=== PATIENT | male | born 2000 | race Hispanic/Latino ===

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

== ENCOUNTER 2023-07-29 00:52 | Emergency (ER) | payer BC, MEDICAID ==
[~2023-07-29] VITALS: Ht 188 cm; Wt 64.9 kg
[2023-07-29 01:23] VITALS: BP 117/68; PULSE 80; RESP 18; O2SAT 98
== END 2023-07-29 04:00 | disposition home or self-care (01) ==
LOC: EDH 00:52
DX: S83.91XA Sprain of unspecified site of right knee, initial encounter (principal); W18.39XA Other fall on same level, initial encounter; Y93.89 Activity, other specified; Y92.89 Other specified places as the place of occurrence of the external cause; Y99.8 Other external cause status
CPT/HCPCS: 73562

== ENCOUNTER 2023-10-03 10:46 | Emergency (ER) | payer BC ==
[~2023-10-03] VITALS: Ht 188 cm; Wt 63.0 kg
[2023-10-03 14:34] VITALS: BP 135/92; PULSE 64; RESP 18
[2023-10-03] MEDS ORDERED: CEPH500B PO (14:54)
[2023-10-03] MEDS ORDERED: IBUP-2070 PO (14:54)
[2023-10-03] MEDS: LIDOCAINE HCL 1% 20 ML VIAL INJ SCH (15:01)
== END 2023-10-03 15:50 | disposition home or self-care (01) ==
LOC: EDH 10:46
DX: L60.0 Ingrowing nail (principal)
CPT/HCPCS: 11730